=== PATIENT | female | born 1995 | race Caucasian/White ===

== ENCOUNTER 2022-06-23 22:04 | Emergency (ER) | payer MEDICAID, SELFPAY ==
[2022-06-23 22:07] VITALS: BP 131/81; PULSE 84; RESP 16; TEMP 36.6; O2SAT 98; BMI 29.2
[2022-06-23 22:27] LABS: Hemoglobin 12.8 g/dl (12.0-16.0); Mean Corpuscular HGB Conc 32.8 g/dl (31.0-35.0); Mean Corpuscular Hemoglobin 27.9 pg (27.0-33.0); Mean Corpuscular Volume 85.2 fL (80.0-98.0); Mean Platelet Volume 10.4 fL (9.4-12.3); Platelet Count 255 X10*3/uL (160-400); Red Blood Count 4.58 X10*6/uL (4.20-5.50); Red Cell Distribution Width 12.7 % (11.0-16.0)
[2022-06-23 22:40] LABS: Alanine Aminotransferase 22 U/L (0-31); Albumin Level 4.4 g/dL (3.5-5.0); Alkaline Phosphatase 93 U/L (39-117); Anion Gap 12 (12-20); Aspartate Amino Transferase 25 U/L (5-31); Bilirubin Direct < 0.2 mg/dL (0.0-0.5); Bilirubin Total 0.3 mg/dL (0.0-1.0); Blood Urea Nitrogen 18 mg/dL (9-16); Calcium 9.3 mg/dL (8.4-10.2); Carbon Dioxide 24 mmol/L (22-29); Chloride 108 mmol/L (96-108); Estimated Glomerular Filt Rate > 60; Glucose Random 99 mg/dL (60-115); Lipase 36 U/L (8-78); Sodium 140 mmol/L (135-145); Total Protein 7.4 g/dL (6.5-8.0)
[2022-06-24 01:14] VITALS: BP 119/71; PULSE 67; RESP 18; O2SAT 98
[2022-06-24 01:21] LABS: HCG Quantitative < 2 mIU/mL
--- NOTE | 2022-06-24 01:23 | ED.GENADULT ---
HPI - General Adult General Chief complaint: Abdominal Pain Stated complaint: Sharp pain R side Time Seen by Provider: 06/24/22 00:56 Source: patient, RN notes reviewed and old records reviewed Mode of arrival: ambulatory Limitations: no limitations History of Present Illness HPI narrative: 26-year-old female who denies any past medical history presents for evaluation of right flank pain. The pain is been present for the last 2-3 days She reports the pain is worse in certain positions and actually better with walking She denies any associated symptoms including cough or shortness of breath, nausea, vomiting, diarrhea, burning with urination, blood in the urine Patient denies any specific known injury She rates her pain currently as a 5/10 Related Data Previous Rx's Medication Instructions Recorded methocarbamol 500 mg tablet 500 mg PO QID muscle spasms #20 06/24/22 tabs naproxen 500 mg tablet 500 mg PO BID PRN pain #20 tabs 06/24/22 Allergies Allergy/AdvReac Type Severity Reaction Status Date / Time methylphenidate Allergy Unknown UNKNOWN Verified 06/24/22 01:36 [From [facility]] From [facility]UGMENT[facility] Allergy Unknown RASH Uncoded 12/11/19 18:25 Review of Systems Constitutional: Constitutional: Reports as per HPI, Denies chills, Denies fatigue, Denies fever(s) and Denies headache(s) ENT: Denies headache(s) Cardiovascular: Cardiovascular: Denies chest pain and Denies dyspnea Respiratory: Respiratory: Denies cough and Denies dyspnea Gastrointestinal: Gastrointestinal: Denies constipation and Denies vomiting Genitourinary: Genitourinary: Denies dysuria Musculoskeletal: Musculoskeletal: Reports back pain Neurologic: Denies headache(s) and Denies focal weakness Endocrine: Endocrine: Denies fatigue PMFSH Social History Social History Alcohol intake: never Smoked in Last 30 Days: No Use of substances other than those prescribed or required for medical reasons: No Advance Directives: No Advance Directives Information Provided: No Physical Exam ED Vital Signs: Vital Signs - 24 hr 06/23/22 22:07 06/24/22 01:14 Temperature 98 F Pulse Rate 84 67 Respiratory Rate 16 18 Blood Pressure 131/81 119/71 Pulse Oximetry 98 98 Oxygen Delivery Method Room Air Room Air BMI result Body Mass Index 29.2 Const General: healthy appearing, comfortable, no acute distress, alert and awake Nutritional Appearance: well nourished Orientation/consciousness: patient oriented x3 [facility] Head: Yes normocephalic and Yes atraumatic Throat: Yes posterior oropharynx normal Eyes Eyelids: Yes eyelids normal Conjunctivae: conjunctivae normal Sclerae: sclerae normal Corneas: corneas normal Pupils: Equal, round and reactive pupils present EOM: EOMs intact bilaterally Neck Neck: Yes full ROM Resp Effort & Inspection: normal respiratory effort, able to speak in complete sentences, no audible wheezes and not labored Auscultation: clear to auscultation bilaterally Cardio Rate: regular rate Rhythm: regular rhythm GI Inspection: No distended Palpation (GI): Soft to palpation, not firm, nontender, no guarding and not rigid Auscultation: normoactive bowel sounds General: Yes no CVA tenderness Back/Spine/Pelvis Back: no CVA tenderness Skin General skin exam: no rashes or lesions noted and elasticity normal Neuro General: patient oriented x3 Cranial nerves: Yes CN's II-XII intact bilaterally, Yes Equal, round and reactive pupils present and Yes Bilaterally intact EOM present Cognition (Neuro): normal cognition Extrem Other: Moving all extremities well without any obvious deformities Medications Administered Discontinued Medications Generic Name Dose Route Start Last Admin Trade Name Freq PRN Reason Stop Dose Admin Ketorolac Tromethamine 30 mg 06/24/22 01:23 06/24/22 01:39 Ketorolac Tromethamine 30 Mg/Ml Vial IM 06/24/22 01:24 30 mg ONCE ONE Administration Medical Decision Making Medical Decision Making [facility] Narrative: 26-year-old female presents for evaluation of atraumatic right flank pain. Her exam is not reproducible. She has no abdominal pain the right upper quadrant or right lower quadrant, no CVA tenderness. Labs are without significant findings. The patient is not , currently awaiting UA. I feel that musculoskeletal origin is the most likely cause of her pain. Her pain is quite high up in the right flank to be a retrocecal appendix I feel this is less likely. The patient no right upper quadrant tenderness, no nausea vomiting, therefore I feel the biliary disease much less likely as well. LFTs are within normal limits. Patient's UA without blood or signs of infection. Differential Diagnosis Flank pain Muscle strain Contusion Obstructive uropathy Pyelonephritis UTI Cholelithiasis Acute cholecystitis Acute appendicitis Lab Data 06/23/22 22:18 06/23/22 22:18 Labs: Lab Results 06/23/22 06/23/22 06/24/22 Range/Units 22:18 22:18 01:18 WBC 7.0 (4.8-10.8) X10*3/uL RBC 4.58 (4.20-5.50) X10*6/uL Hgb 12.8 (12.0-16.0) g/dl Hct 39.0 (37.0-47.0) % MCV 85.2 (80.0-98.0) fL MCH 27.9 (27.0-33.0) pg MCHC 32.8 (31.0-35.0) g/dl RDW 12.7 (11.0-16.0) % Plt Count 255 (160-400) X10*3/uL MPV 10.4 (9.4-12.3) fL Absolute Nucleated RBC 0.000 (0.0-0.012) X10*3/uL Nucleated RBC % (auto) 0.0 (0.0-0.2) /100WBC Sodium 140 (135-145) mmol/L Potassium 4.0 (3.3-5.1) mmol/L Chloride 108 (96-108) mmol/L Carbon Dioxide 24 (22-29) mmol/L Anion Gap 12 (12-20) BUN 18 H (9-16) mg/dL Creatinine 0.84 (0.5-1.4) mg/dL Estim Creat Clear Calc 102.0 Estimated GFR > 60 Random Glucose 99 (60-115) mg/dL Calcium 9.3 (8.4-10.2) mg/dL Total Bilirubin 0.3 (0.0-1.0) mg/dL Direct Bilirubin < 0.2 (0.0-0.5) mg/dL AST 25 (5-31) U/L ALT 22 (0-31) U/L Alkaline Phosphatase 93 (39-117) U/L Total Protein 7.4 (6.5-8.0) g/dL Albumin 4.4 (3.5-5.0) g/dL Lipase 36 (8-78) U/L Beta HCG, Quant < 2 mIU/mL Urine Color Yellow Urine Appearance Clear Urine pH 6.0 (5.0-9.0) Ur Specific [place] >= 1.030 H (1.005-1.025) Urine Protein Negative (Neg-Trace) mg/dL Urine Glucose (UA) Negative (Negative) mg/dL Urine Ketones Negative (Negative) mg/dL Urine Blood Negative (Negative) Urine Nitrite Negative (Negative) Ur Leukocyte Esterase Negative (Negative) Urine RBC 0-2 (0-2) /HPF Urine WBC 0-5 (0-5) /HPF Ur Squamous Epith Cells 0-2 (0-2) /HPF Urine Bacteria None Seen (None Seen) Hyaline Casts 0-2 (0-2) /LPF Discharge Plan Discharge Clinical Impression: Acute right flank pain Patient Disposition: Home, Self-Care Instructions: Flank Pain (ED) Additional Instructions: Your blood work was within normal limits, your urine sample did not show any sign of blood or infection. Your pain is most likely related to muscle spasms. Use naproxen twice daily for 5 days. Use methocarbamol as needed for muscle spasms. This may make you sleepy, do not drink alcohol or drive after taking it Follow-up with your primary doctor Prescriptions: New naproxen 500 mg tablet 500 mg PO BID PRN (Reason: pain) Qty: 20 0RF methocarbamol 500 mg tablet 500 mg PO QID Qty: 20 0RF
--- NOTE | 2022-06-24 01:26 | PC.NURSE ---
c/o R flank pain, denies n/v/d, denies increased pain with movement aox4 boyfriend at bedside no apparent distress, resting quietly no guarding observed to affected area
[2022-06-24 01:28] LABS: Appearance Urine Clear; Color Urine Yellow; Glucose Urine UA Negative (Negative); Leukocyte Esterase Urine Negative (Negative); Nitrite Urine Negative (Negative); Specific Gravity - Urine >= 1.030 (1.005-1.025); Urine Blood Negative (Negative); Urine Ketones Negative (Negative); Urine Protein Negative (Neg-Trace)
[2022-06-24 01:30] LABS: Bacteria Urine None Seen (None Seen); Hyaline Casts Urine 0-2 /LPF (0-2); RBC Urine 0-2 /HPF (0-2); Squamous Epithelial Cell Urine 0-2 /HPF (0-2); WBC Urine 0-5 /HPF (0-5)
[2022-06-24] MEDS: Ketorolac Tromethamine 30 MG/ML VIAL IM (01:39)
--- NOTE | 2022-06-24 02:07 | PC.NURSE ---
Discharge instructions given/explained to pt all of pt's questions answered ambulates safely/independently, no apparent distress
== END 2022-06-24 02:09 | disposition home or self-care (01) ==
PROVIDERS: Emergency Provider Emergency Medicine; PCP Nurse Practitioner Family
DX: R10.9 Unspecified abdominal pain (principal)
CPT/HCPCS: 36415; 80053; 81001; 82248; 83690; 84702; 85027; 96372; 99284; J1885